=== PATIENT | female | born 1990 | race Caucasian/White ===

== ENCOUNTER 2017-11-02 12:09 | Emergency (ER) | payer OTHER ==
[2017-11-02 12:15] VITALS: BP 118/79
--- NOTE | 2017-11-02 13:29 | ER Document Report ---
ED General - General Chief Complaint: Headache Stated Complaint: FLU SYMPTOMS Time Seen by Provider: 11/02/17 13:26 Mode of Arrival: Ambulatory Information source: Patient TRAVEL OUTSIDE OF THE [place] IN LAST 30 DAYS: No - Related Data Allergies/Adverse Reactions: No Known Allergies Allergy (Verified 11/02/17 12:11) Home Medications: Current Home Medications Duloxetine HCl [Cymbalta] 60 mg PO DAILY 11/02/17 [History] Past Medical History - General Information source: Patient - Social History Smoking Status: Current Some Day Smoker Frequency of alcohol use: None Drug Abuse: None Family History: Reviewed & Not Pertinent Patient has suicidal ideation: No Patient has homicidal ideation: No Renal/ Medical History: Denies: Hx Peritoneal Dialysis Psychiatric Medical History: Reports: Hx Depression Review of Systems - Review of Systems Constitutional: denies: Chills, Fever Cardiovascular: denies: Chest pain, Palpitations Respiratory: denies: Cough, Short of breath Gastrointestinal: denies: Diarrhea, Vomiting Physical Exam - Vital signs Vitals: Temp Pulse Resp BP Pulse Ox 97.7 F 100 15 118/79 95 11/02/17 12:15 11/02/17 12:15 11/02/17 12:15 11/02/17 12:15 11/02/17 12:15 Interpretation: Normal - General General appearance: Appears well, Alert In distress: None - HEENT Head: Normocephalic, Atraumatic Eyes: Normal Pupils: PERRL - Respiratory Respiratory status: No respiratory distress Chest status: Nontender Breath sounds: Normal Chest palpation: Normal - Cardiovascular Rhythm: Regular Heart sounds: Normal auscultation Murmur: No - Abdominal Inspection: Normal Distension: No distension Bowel sounds: Normal Tenderness: Nontender Organomegaly: No organomegaly - Back Back: Normal, Nontender - Extremities General upper extremity: Normal inspection, Nontender, Normal color, Normal ROM , Normal temperature General lower extremity: Normal inspection, Nontender, Normal color, Normal ROM , Normal temperature, Normal weight bearing. 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 No: Pronator drift Sensory: Normal - Psychological Associated symptoms: Normal affect, Normal mood - Skin Skin Temperature: Warm Skin Moisture: Dry Skin Color: Normal Course - Vital Signs Vital signs: Temp Pulse Resp BP Pulse Ox 97.7 F 100 15 118/79 95 11/02/17 12:15 11/02/17 12:15 11/02/17 12:15 11/02/17 12:15 11/02/17 12:15 Discharge - Discharge Clinical Impression: Migraine Qualifiers: Migraine type: other Status migrainosus presence: with status migrainosus Intractability: intractable Qualified Code(s): G43.811 - Other migraine, intractable, with status migrainosus Condition: Stable Disposition: HOME, SELF-CARE Instructions: Headache ([facility]) Additional Instructions: Your blood pressure is mildly elevated. Please have this rechecked within 1 week by your doctor. Prescriptions: Butalb/Acetaminophen/Caffeine [Fioricet (50-325-40 mg) Tablet] 1 - 2 tab PO Q4H #20 tab Forms: Elevated Blood Pressure, Return to Work Referrals: NAWAF HINDS MD [COMMUNITY BASED STAFF] - Follow up as needed
== END 2017-11-02 13:33 | disposition home or self-care (01) ==
LOC: ER 12:09
DX: G43.811 Other migraine, intractable, with status migrainosus (principal); F17.200 Nicotine dependence, unspecified, uncomplicated
CPT/HCPCS: 99283